=== PATIENT | female | born 1995 | race Hispanic/Latino ===

== ENCOUNTER 2020-02-03 06:13 | Emergency (ER) | payer BC, OTHER ==
[2020-02-03] MEDS ORDERED: LIDOCAINE 5% TOPICAL PATCH TP ONE (06:55)
== END 2020-02-03 07:25 | disposition home or self-care (01) ==
LOC: EDH 06:13
DX: M62.838 Other muscle spasm (principal); M54.6 Pain in thoracic spine
CPT/HCPCS: 99282

== ENCOUNTER 2021-07-16 08:53 | Emergency (ER) | payer BC ==
[~2021-07-16] VITALS: Ht 152.4 cm; Wt 64.4 kg
[2021-07-16 09:51] LABS: BASOPHILS % (AUTO) 0.6 % (0.0-5.0); HEMATOCRIT 36.1 % (36-48); LYMPHOCYTES % (AUTO) 42.6 % (21.0-51.0); MEAN CORPUSCULAR HEMOGLOBIN 24.1 pg (27.0-33.0); MEAN CORPUSCULAR HGB CONC 30.7 g/dL (32.0-36.0); MEAN CORPUSCULAR VOLUME 78.5 fL (79-99); MONOCYTES % (AUTO) 7.1 % (3.0-13.0); NEUTROPHILS % (AUTO) 47.5 % (40.0-77.0); PLATELET COUNT (AUTO) 369 K/uL (130-400); RED CELL DISTRIBUTION WIDTH 15.3 % (11.0-15.5); WHITE BLOOD COUNT (AUTO) 6.5 K/uL (4.8-10.8)
[2021-07-16 09:59] LABS: APPEARANCE,URINE CLEAR (CLEAR); BILIRUBIN,URINE NEGATIVE (NEGATIVE); COLOR,URINE YELLOW (YELLOW); GLUCOSE, URINE (UA) NEGATIVE (NEGATIVE); KETONES,URINE NEGATIVE (NEGATIVE); LEUKOCYTE ESTERASE ,URINE TRACE (NEGATIVE); NITRATE,URINE NEGATIVE (NEGATIVE); OCCULT BLOOD,URINE LARGE (NEGATIVE); PH,URINE 6.5 (5.0-8.0); PROTEIN,URINE NEGATIVE (NEGATIVE); UROBILINOGEN,URINE 0.2 mg/dL (0.2-1.0)
[2021-07-16 10:02] LABS: ALBUMIN 3.3 g/dL (3.5-5.0); BILIRUBIN,TOTAL 0.1 mg/dL (0.2-1.0); CREATININE 0.6 mg/dL (0.5-1.5); TOTAL PROTEIN, SERUM 7.6 g/dL (6.0-8.3)
[2021-07-16 10:16] LABS: BACTERIA,URINE Rare /HPF (None Seen); SQUAMOUS EPITHELIAL CELL,UR Few /HPF (0-2); WBC,URINE 0-1 /HPF (0-1)
[2021-07-16 10:17] LABS: TRICHOMONAS,URINE Few /LPF (None Seen)
[2021-07-16] MEDS ORDERED: METRONIDAZOLE 500 MG TABLET PO SCH (10:30)
[2021-07-16 10:48] VITALS: BP 117/68
== END 2021-07-16 10:50 | disposition home or self-care (01) ==
LOC: EDH 08:53
DX: A59.9 Trichomoniasis, unspecified (principal); D50.9 Iron deficiency anemia, unspecified; F41.9 Anxiety disorder, unspecified; J45.909 Unspecified asthma, uncomplicated; F32.A Depression, unspecified
CPT/HCPCS: 36415; 80053; 81001; 81025; 85025; 86850; 86900; 86901

== ENCOUNTER 2021-09-03 13:15 | Emergency (ER) | payer BC ==
[~2021-09-03] VITALS: Ht 152.4 cm; Wt 63.5 kg
[2021-09-03 13:40] LABS: APPEARANCE,URINE CLEAR (CLEAR); BILIRUBIN,URINE NEGATIVE (NEGATIVE); COLOR,URINE YELLOW (YELLOW); GLUCOSE, URINE (UA) NEGATIVE (NEGATIVE); KETONES,URINE NEGATIVE (NEGATIVE); LEUKOCYTE ESTERASE ,URINE NEGATIVE (NEGATIVE); NITRATE,URINE NEGATIVE (NEGATIVE); OCCULT BLOOD,URINE LARGE (NEGATIVE); PROTEIN,URINE NEGATIVE (NEGATIVE); UROBILINOGEN,URINE 0.2 mg/dL (0.2-1.0)
[2021-09-03 14:11] LABS: HCG,QUAL RESULT NEGATIVE (NEGATIVE)
[2021-09-03 14:15] LABS: BACTERIA,URINE Rare /HPF (None Seen); RBC,URINE 51-100 /HPF (0-1); SQUAMOUS EPITHELIAL CELL,UR Rare /HPF (0-2); WBC,URINE 0-1 /HPF (0-1)
[2021-09-03 14:53] LABS: HEMATOCRIT 40.1 % (36-48)
[2021-09-03 15:18] VITALS: BP 126/69
== END 2021-09-03 15:23 | disposition home or self-care (01) ==
LOC: EDH 13:15
DX: N93.9 Abnormal uterine and vaginal bleeding, unspecified (principal); D64.9 Anemia, unspecified; F41.9 Anxiety disorder, unspecified; J45.909 Unspecified asthma, uncomplicated; F32.A Depression, unspecified
CPT/HCPCS: 36415; 81001; 81025; 85014; 85018

== ENCOUNTER 2022-07-08 09:42 | Emergency (ER) | payer BC, MEDICAID ==
[~2022-07-08] VITALS: Ht 160 cm; Wt 71.2 kg
[2022-07-08 09:45] VITALS: BP 106/83
[2022-07-08 11:37] LABS: APPEARANCE,URINE CLOUDY (CLEAR); BILIRUBIN,URINE NEGATIVE (NEGATIVE); COLOR,URINE YELLOW (YELLOW); GLUCOSE, URINE (UA) NEGATIVE (NEGATIVE); KETONES,URINE NEGATIVE (NEGATIVE); LEUKOCYTE ESTERASE ,URINE 25 Leu/uL (NEGATIVE); NITRATE,URINE NEGATIVE (NEGATIVE); OCCULT BLOOD,URINE NEGATIVE (NEGATIVE); PH,URINE 5.5 (5.0-8.0); PROTEIN,URINE 20 mg/dL (NEGATIVE); UROBILINOGEN,URINE 0.2 mg/dL (0.2-1.0)
[2022-07-08 11:39] LABS: HCG,QUALITATIVE URINE NEGATIVE (NEGATIVE)
[2022-07-08 11:57] LABS: BACTERIA,URINE FEW /HPF (None Seen); MUCUS,URINE RARE LPF (None Seen); SQUAMOUS EPITHELIAL CELL,UR MANY /HPF (0-2)
== END 2022-07-08 12:58 | disposition home or self-care (01) ==
LOC: EDH 09:42
DX: M54.9 Dorsalgia, unspecified (principal); J45.909 Unspecified asthma, uncomplicated; F41.9 Anxiety disorder, unspecified; F32.A Depression, unspecified
CPT/HCPCS: 81001; 81025; 87088

== ENCOUNTER 2025-04-05 20:20 | Emergency (ER) | payer BC, MEDICAID ==
[~2025-04-05] VITALS: Ht 152.4 cm; Wt 77.1 kg
[2025-04-05 20:28] VITALS: BP 147/84; PULSE 82; RESP 18; TEMP 98.7; O2SAT 99
[2025-04-05] MEDS ORDERED: IBUP-2077 PO (20:35)
[2025-04-05] MEDS ORDERED: CLIN-141 PO (20:35)
--- NOTE | 2025-04-05 20:36 | ERN ---
ED Note History of Present Illness Stated Complaint: C/O TOOTHACHE, LEFT UPPER SIDE Chief Complaint: Tooth Ache/Pain Time Seen by MD: 20:26 Dictation: IS A 29-YEAR-OLD FEMALE COMING IN TODAY WITH LEFT UPPER MOLAR TOOTH PAIN AND GINGIVAL SWELLING FOR THE LAST WEEK. NO FEVER NO CHILLS NO NAUSEA VOMITING. 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 SHE STATES SHE HAS NOT BEEN TO THE DENTIST BECAUSE SHE HAS BEEN HAVING TO WORK. Allergies: Coded Allergies: No Known Drug Allergies (Unverified Allergy, Unknown, 07/16/21) Past Medical History Past Medical History: Anemia, Asthma Surgical History: None Family History: Negative Social History: Negative, Lives with family History: Not Applicable LMP: Mar 08, 2025 RN Note Reviewed/Agreed w/PFSH: Yes Review of System Dictation CONSTITUTIONAL: NEGATIVE EXCEPT FOR HPI HEAD/FACE: NEGATIVE EXCEPT FOR HPI EENT: NEGATIVE EXCEPT FOR HPI TOOTH PAIN NUMBER 17 RESPIRATORY: NEGATIVE EXCEPT FOR HPI GASTROINTESTINAL/ABDOMINAL: NEGATIVE EXCEPT FOR HPI GENITOURINARY: NEGATIVE EXCEPT FOR HPI MUSCULOSKELETAL: NEGATIVE EXCEPT FOR HPI INTEGUMENTARY: NEGATIVE EXCEPT FOR HPI NEUROLOGICAL/PSYCH: NEGATIVE EXCEPT FOR HPI HEMATOLOGIC/LYMPHATIC: NEGATIVE EXCEPT FOR HPI ALL SYSTEMS NEGATIVE, EXCEPT NOTED ABOVE. 13 POINT REVIEW OF SYSTEMS ASSESSED AND ALL NEGATIVE EXCEPT FOR ABOVE. Initial Vital Sign VS Vital Signs Date Time Temp Pulse Resp B/P (MAP) Pulse Ox O2 Delivery O2 Flow Rate FiO2 04/05/25 20:22 98.8 82 18 147/84 99 Room Air 04/05/25 20:28 0 21 Physical Exam Dictation VITAL SIGNS REVIEWED GENERAL APPEARANCE: ALERT, ORIENTED X 3, MODERATE PAIN ACUTE DISTRESS, WELL DEVELOPED, NOURISHED. HEAD AND FACE: NON-TRAUMATIC. EYES: PERRL, PINK CONJUNCTIVAS, EYELID NO TRAUMA, ANTERIOR CHAMBER WITH ARCUS SENILIS. EARS: PINNAS INTACT AND NO SIGNS OF TRAUMA OR ERYTHEMA EAR CANALS CLEAR AND NO DISCHARGE TM NO ERYTHEMA NOSE: NO DISCHARGE, NO BLEEDING. OROPHARYNX: MOUTH NORMAL, TONGUE PINK, GINGIVAL INFLAMMATION AT TOOTH 17., IMPACTED PHARYNX CLEAR,NO ERYTHEMA, TONSILS NO EXUDATES, NO ABSCESSES NOTED, MUCOUS MEMBRANE MOIST NECK: SUPPLE, NON-TENDER, NO THYROMEGALY, NO MASSES, NO JVD, NO BRUITS BREAST:DEFERRED CHEST:NO TENDERNESS, NO CREPITUS, NO PARADOXICAL MOVEMENT, NO RETRACTIONS LUNGS:CLEAR, WELL-VENTILATED, SYMMETRIC, NO RALES, NO WHEEZING, NO RHONCHI, NO STRIDOR, GOOD BREATH SOUNDS BILATERALLY HEART: REGULAR RATE, REGULAR RHYTHM, NO MURMUR, NO GALLOPS VASCULAR: NO PERIPHERAL EDEMA, ABDOMEN: SOFT, POSITIVE BOWEL SOUNDS, NONDISTENDED, NO GUARDING, NONTENDER, NO REBOUND, NO MASSES NO HEPATOMEGALY, NO SPLENOMEGALY, NO PIERRE'S SIGN, NO HERNIAS. RECTAL: DEFERRED GENITAL: DEFERRED NEUROLOGICAL: NORMAL SPEECH, MOTOR FUNCTION INTACT, SENSORY FUNCTION INTACT MUSCULOSKELETAL: NECK NONTENDER, FULL RANGE OF MOTION, BACK NONTENDER, FULL RANGE OF MOTION, EXTREMITIES: NONTENDER, FULL RANGE OF MOTION SKIN: COLOR PINK, DRY, NO TURGOR, NO RASH, NO LACERATIONS, NO ABRASIONS, NO CONTUSIONS. LYMPHATIC: DEFERRED Results (Laboratory/Radiology) Labs Reviewed?: Yes ED Course ED Course Orders Procedure Category Date Status Time Ibuprofen 800 Mg Tab PHA 04/05/25 Transmitted (Motrin) 21:00 Vital Signs Date Time Temp Pulse Resp B/P (MAP) Pulse Ox O2 Delivery O2 Flow Rate FiO2 04/05/25 20:28 98.8 82 18 147/84 99 Room Air* 0 21 04/05/25 20:22 98.8 82 18 147/84 99 Room Air 2/8 PATIENT WAS MADE AWARE THAT WE DO NOT HAVE ANY DENTAL CARE IN THE EMERGENCY ROOM. I PROVIDED IBUPROFEN FOR PAIN, SHE WILL BE PRESCRIBED CLINDAMYCIN 300 MG Q.I.D. FOR 10 DAYS TOLD TO GO TO [facility] FOR DENTAL CARE OR SEE HER SMART PHONE FOR A DENTIST IN [place] WITH A AN AFTER HOURS EMERGENCY NUMBER. Medical Decision Making MDM MEDICAL DECISION-MAKING BASED ON EMPIRIC TREATMENT FOR DENTALGIA AND IMPACTED WISDOM TOOTH IBUPROFEN WAS GIVEN PATIENT PRESCRIBED CLINDAMYCIN 300 Q.I.D. 10 DAYS IBUPROFEN 800 MG NEEDED FOR PAIN TOLD TO LOOK IN HER SMART PHONE FOR A DENTIST IN [place] WITH A AN AFTER HOURS EMERGENCY NUMBER DX & DISP Disposition: Discharge Departure Impression: Primary Impression: Impacted third molar tooth Condition: Stable Scripts Ibuprofen (Ibuprofen 800 mg Tab) 800 Mg Tab 800 MG PO Q8H PRN for fever or pain, #30 TAB 0 Refills Prov: AILEEN HILLS [employer] INSPECTOR REPAIRER 04/05/25 Clindamycin HCl (Clindamycin HCl) 300 Mg Capsule 1 CAP PO QID for 10 Days, #40 CAP 0 Refills Prov: AILEEN HILLS 04/05/25 Additional Instructions: FOLLOW-UP WITH PRIMARY CARE PROVIDER IN 1 TO 2 DAYS. TAKE MEDICATIONS DIRECTED HERE IN THE EMERGENCY ROOM. OKAY TO CONTINUE HOME MEDICATIONS UNLESS OTHERWISE DISCUSSED DURING YOUR VISIT IN THE EMERGENCY ROOM TODAY. RETURN TO YOUR NEAREST EMERGENCY ROOM IF SYMPTOMS WORSEN OR IF THERE IS NO IMPROVEMENT. CALL 911 IF YOU NEED IMMEDIATE ASSISTANCE. TAKE TYLENOL OR MOTRIN [id number] NEEDED AND IF NO CONTRAINDICATIONS ARE PRESENT. INCREASE ORAL HYDRATION. A WOUND CULTURE OR URINE CULTURE WAS ORDERED HERE IN THE EMERGENCY ROOM DEPARTMENT PLEASE FOLLOW-UP WITH PRIMARY CARE PROVIDER AND ADVISE THEM TO GET REPEAT PORTS FROM OUR FACILITY. IF YOU HAD ANY AUBREY WRAP/SPLINTS THAT WERE APPLIED HERE, PLEASE DO NOT REMOVE THEM UNTIL YOU SEE YOUR PRIMARY CARE OR SPECIALTY. TAKE CLINDAMYCIN DIRECTED UNTIL GONE. FIRST DOSE WE WILL BE TWO CAPSULES, THEN ONE CAPSULE EVERY 6 HOURS DIRECTED UNTIL GONE. TAKE IBUPROFEN EVERY 6-8 HOURS WITH FOOD FOR THE NEXT TWO DAYS. LOOKING THE YELLOW PAGES FOR A LOCAL DENTIST WITH A AN AFTER HOURS EMERGENCY NUMBER AND FOLLOW UP. Referrals: NONE (PCP) Time of Disposition: 20:34 I have reviewed the case, and I agree with, Diagnosis and Plan AILEEN HILLS Apr 05, 2025 20:36
== END 2025-04-05 21:15 | disposition home or self-care (01) ==
LOC: EDH 20:20
DX: K01.1 Impacted teeth (principal); J45.909 Unspecified asthma, uncomplicated
CPT/HCPCS: 99283